=== PATIENT | female | born 1980 | race Hispanic/Latino ===

== ENCOUNTER 2024-05-15 16:55 | Emergency (ER) | payer BC ==
[~2024-05-15] VITALS: Ht 154.9 cm; Wt 117.9 kg
[2024-05-15 17:21] VITALS: TEMP 98.7
[2024-05-15 17:47] LABS: BASOPHILS # (AUTO) 0.1 (0.0-0.1); BASOPHILS % 0.8 % (0.0-1.0); EOSINOPHILS # (AUTO) 0.4 (0.0-0.4); EOSINOPHILS % 3.8 % (0.0-6.0); HEMATOCRIT 45.1 % (34.2-44.1); HEMOGLOBIN 14.1 g/dL (12.0-16.0); LYMPHOCYTES # (AUTO) 2.7 (1.0-3.2); LYMPHOCYTES % 28.1 % (18.0-39.1); MEAN CORPUSCULAR HEMOGLOBIN 29.2 pg (28-32); MEAN CORPUSCULAR HGB CONC 31.3 g/dL (31-35); MEAN CORPUSCULAR VOLUME 93.4 fL (81-99); MONOCYTES # (AUTO) 0.6 (0.2-0.8); MONOCYTES % 6.1 % (4.4-11.3); NEUTROPHILS # (AUTO) 5.9 (2.1-6.9); NEUTROPHILS % 60.9 % (38.7-80.0); PLATELET COUNT 377 x10e3/uL (140-360); RED BLOOD COUNT 4.83 x10e6/uL (3.6-5.1); RED CELL DISTRIBUTION WIDTH 13.5 % (11.7-14.4); WHITE BLOOD COUNT 9.68 x10e3/uL (4.8-10.8)
[2024-05-15 17:56] LABS: INR 0.92; PROTHROMBIN TIME 12.9 seconds (11.9-14.5)
[2024-05-15 17:57] LABS: PARTIAL THROMBOPLASTIN TIME 27.5 seconds (23.8-35.5)
[2024-05-15 18:07] LABS: ALANINE AMINOTRANSFERASE 20 IU/L (0-55); ALBUMIN 3.6 g/dL (3.5-5.0); ALBUMIN/GLOBULIN RATIO 0.8 (0.8-2.0); ALKALINE PHOSPHATASE 71 IU/L (40-150); ANION GAP 15.4 mmol/L (8-16); BILIRUBIN,TOTAL 0.5 mg/dL (0.2-1.2); BLOOD UREA NITROGEN 13 mg/dL (7-26); BUN/CREATININE RATIO 15 (6-25); CALCIUM 9.9 mg/dL (8.4-10.2); CARBON DIOXIDE 28 mmol/L (22-29); CHLORIDE 100 mmol/L (98-107); CREATINE KINASE 34 IU/L (29-168); CREATININE, SERUM 0.88 mg/dL (0.57-1.11); EST GLOMERULAR FILTRATION RATE 83 ML/MIN (>=60); GLUCOSE 88 mg/dL (74-118); POTASSIUM 4.4 mmol/L (3.5-5.1); SODIUM 139 mmol/L (136-145)
[2024-05-15 18:18] LABS: TROPONIN I < 0.001 ng/mL (0-0.300)
[2024-05-15] MEDS: ONDANSETRON HCL INJ 2MG/ML 2ML 2 MG/ML VIAL IV STA (18:40)
[2024-05-15] MEDS: ACETAMIN/BUTALBITAL/CAFFEINE TAB PO ONE (19:02)
[2024-05-15] MEDS: SODIUM CHLORIDE 0.9% 1000ML 1,000 ML IV ONE (19:02)
[2024-05-15] MEDS: KETOROLAC TROMETHAMINE 30 MG/ML VIAL IV STA (19:03)
[2024-05-15] MEDS: DIPHENHYDRAMINE HCL INJ 50 MG/ML VIAL IV ONE (19:03)
[2024-05-15] MEDS: METOCLOPRAMIDE HCL 10 MG/2ML VIAL IV ONE (19:04)
[2024-05-15 19:12] VITALS: PULSE 66; RESP 16
[2024-05-15] MEDS ORDERED: FIORICET 50-301 EACH PO (19:53)
[2024-05-15] MEDS ORDERED: ONDANSETRON ODT4 MG SL (19:53)
[2024-05-15 20:04] VITALS: BP 141/87; PULSE 61; RESP 16; O2SAT 100
== END 2024-05-15 20:03 | disposition home or self-care (01) ==
LOC: ER 18:10
DX: G43.909 Migraine, unspecified, not intractable, without status migrainosus (principal); R11.2 Nausea with vomiting, unspecified; I10 Essential (primary) hypertension; Z86.718 Personal history of other venous thrombosis and embolism
CPT/HCPCS: 36415; 70450; 71045; 80053; 82550; 84484; 85025; 85610; 85730; 93005; 99284; J1200; J1885; J2405; J2765; J7030

== ENCOUNTER → 2024-06-15 | Day surgery (SDC) | payer BC ==
[~2024-06-15] MED LIST: APPLE CIDER VI500 MG PO; AQUASOL A50000 UNIT PO; ASHWAGANDHA300 MG PO; B-100 COMPLEX100 MG PO; BIOTIN PLUS 5,1 EACH PO; CELEBREX200 MG PO; ESTROVEN 155 M155 MG PO; FAMOTIDINE20 MG PO; FENTANYL CITRATE/PF 100MCG/2 ML INJ ONE; FERROUS SULFAT324 MG PO; FIORICET 50-301 EACH PO; FLAXSEED OIL1000 MG PO; GLUCOSAMINE1000 MG PO; GLYCOPYRROLATE INJ 0.2 MG/ML VIAL ONE; K2 PLUS D3 TAB1 EACH PO; LEXAPRO10 MG PO; LEXAPRO5 MG PO; LIDOCAINE HCL 2% LOCAL INJ 5 ML SDV VIAL INJ ONE; LOSARTAN POTASS25 MG PO; MACA500 MG PO; MELATONIN3 MG PO; MIDAZOLAM HCL 2 MG/2 ML VIAL ONE; MULTI-VITAMIN1 EACH PO; OMEGA 3 FISH O1 EACH PO; ONDANSETRON ODT4 MG SL; OZEMPIC0.25 MG/02 SC; PROBIOTIC & AC1 EACH PO; PROPOFOL IV EMULSION 10 MG/ML 20 ML VIAL ONE; TERBINAFINE HC250 MG PO; TRULANCE3 MG PO; TURMERIC500 M1 PO; VITAMIN C1000 MG PO; VITAMIN E400 UNI1 PO; ZYRTEC10 MG PO; [UNRECOGNIZED DRUG - OTHER] PO; [UNRECOGNIZED DRUG - OTHER] PO; [UNRECOGNIZED DRUG - OTHER] PO; [UNRECOGNIZED DRUG - OTHER] PO
[2024-06-15] MEDS: LACTATED RINGER'S 1,000 ML ONE (13:50)
[2024-06-15 16:23] VITALS: TEMP 97
[2024-06-15 16:50] VITALS: BP 120/81; PULSE 70; RESP 18; O2SAT 99
== END | disposition home or self-care (01) ==
LOC: OR 12:49
PROVIDERS: ATTEND Internal Medicine Gastroenterology
DX: K21.00 Gastro-esophageal reflux disease with esophagitis, without bleeding (principal); K29.50 Unspecified chronic gastritis without bleeding; K31.A11 Gastric intestinal metaplasia without dysplasia, involving the antrum; K29.80 Duodenitis without bleeding; K58.1 Irritable bowel syndrome with constipation; K57.30 Diverticulosis of large intestine without perforation or abscess without bleeding; K64.8 Other hemorrhoids; D64.9 Anemia, unspecified; R01.1 Cardiac murmur, unspecified; I10 Essential (primary) hypertension; E66.01 Morbid (severe) obesity due to excess calories; M06.9 Rheumatoid arthritis, unspecified; F41.9 Anxiety disorder, unspecified; F32.A Depression, unspecified; Z88.0 Allergy status to penicillin; Z91.040 Latex allergy status; Z79.1 Long term (current) use of non-steroidal anti-inflammatories (NSAID); Z79.85 Long-term (current) use of injectable non-insulin antidiabetic drugs; Z79.899 Other long term (current) drug therapy; Z68.42 Body mass index [BMI] 45.0-49.9, adult; Z80.0 Family history of malignant neoplasm of digestive organs
CPT/HCPCS: 43239; 45378; J2003; J2250; J2704; J3010; J7121